=== PATIENT | male | born 1975 | race American Indian/Alaskan Native ===

== ENCOUNTER 2017-11-24 12:49 | Outpatient (CLI) | payer OTHER ==
--- NOTE | 2017-11-30 11:57 | Magnetic Resonance Report ---
MRI RIGHT KNEE WITHOUT CONTRAST: 11/24/17 CLINICAL: Right knee pain. TECHNIQUE: Sagittal proton density fat sat , sagittal T2 fat sat, coronal and axial and proton density fat sat, coronal T1 and sagittal T2*sequences on a 1.5 Dolores magnet. FINDINGS: The anterior and posterior cruciate ligaments are intact and the collateral ligaments are intact. Complex tear of the posterior horn medial meniscus with abnormal signal and irregularity of the superior articular surface. Suspect tear of the anterior horn of the medial meniscus. Abnormal oblique signal extending to the superior articular surface is identified only on this gradient echo sequence. There is moderate thinning of the medial femoral cartilage. Normal marrow signal with no bone contusion or fracture. There is a large knee joint effusion. The lateral meniscus is intact. The posterolateral corner structures including the popliteus tendon are intact. Intact patella with normal cartilage, tendon and retinaculum. No popliteal cyst. IMPRESSION: 1. 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 2. No ligamentous injury. 3. Large knee joint effusion and moderate thinning of the medial femoral cartilage. 4. No bone contusion or fracture.
== END 2017-11-24 12:50 | disposition home or self-care (01) ==
LOC: MRI 12:49
PROVIDERS: ATTEND Internal Medicine
DX: M25.461 Effusion, right knee (principal); Z88.0 Allergy status to penicillin
CPT/HCPCS: 73721